=== PATIENT | female | born 1960 | race Caucasian/White ===

== ENCOUNTER → 2020-05-02 08:03 | Outpatient (CLI) | payer MEDICARE, OTHER | END | disposition home or self-care (01) | LOC: D.RAD 08:03 | PROVIDERS: ATTEND Family Medicine | DX: R13.19 Other dysphagia (principal) ==

== ENCOUNTER → 2020-10-30 09:09 | Outpatient (CLI) | payer MEDICARE, OTHER ==
--- NOTE | 2020-10-31 16:12 | EC ---
PATIENT:DINORA ELIZALDE DATE OF SERVICE: 10/30/20 SEX: F MEDICAL RECORD: [id number] DATE OF : 64 [facility] AGE OF PATIENT: 60 ADMISSION DATE: 10/30/20 REFERRING PHYSICIAN: INTERPRETING PHYSICIAN: FREDERICK MCKEON MD ECHOCARDIOGRAM REPORT ECHO CHARGES 4 ECHO COMPLETE Date: 10/30/20 CLINICAL DIAGNOSIS: HEART MURMUR ECHOCARDIOGRAPHIC MEASUREMENTS (adult normal given) AC root (d.<3.7cm) 2.3 cm LV Septum d (<1.2 cm> 1.0 cm Valve Excursion 1.3 cm LV Septum (systole) 1.3 cm Left Atria (s.<4.0cm> 3.2 cm LVPW d(<1.2cm) 1.0 cm RV (d.<2.3cm) 2.5 cm LVPW (sytole) 1.5 cm LV diastole(<5.6CM) 3.4 cm MV E-F(>70mm/sec) cm LV systole 2.3 cm LVOT Diameter 1.7 cm MV exc.(>10mm) 1.2 cm Est.ejection fraction (50-75%) % DOPPLER: LVIT cm/sec A 86.0 cm/sec E 64.0 cm/sec LA cm/sec RVSP 27 mmHg LVOT 105 cm/sec AOP1/2T m/s Asc. Ao 140 cm/sec RVOT cm/sec RA cm/sec PA cm/sec AV Gradient Peak 7.82 mmHg AV Mean 3.76 mmHg AV Area 1.5 cm MV Gradient Peak 5.31 mmHg MV Mean 2.22 mmHg MV Area cm COMMENTS: Awake Overnight Counselor: 2 ATA REYES Welt Trimming Machine Operator: 3 Dr. Dee TAPE# PACS Pericardial Effusion N DATE OF SERVICE: Adequate 2D, color flow imaging, spectral Doppler, and M-Mode. FINDINGS: No LVH. LV internal dimension is normal. Wall motion is normal. EF is greater than or equal to 55%. Aortic valve is tricuspid. No evidence of stenosis by Doppler interrogation. Left atrium is normal. Mitral valve shows no prolapse. Trivial MR. Right side is grossly normal. Trivial TR. TRANSINT:[id number] Voice Confirmation ID: [id number] DOCUMENT ID: [id number] ECHOCARDIOGRAM REPORT [id number] DINORA ELIZALDE FREDERICK MCKEON MD at 1612 CC: [id number] DICTATION DATE: 10/30/20 1433 LABORATORY TECHNOLOGY TEACHER: 10/30/20 1809 DEP CLI 10/30/20 [id number] [place] [address]
== END | disposition home or self-care (01) ==
LOC: D.HCCARDIO 09:09 → D.HCCECHO 13:30
PROVIDERS: ATTEND Internal Medicine Cardiovascular Disease
DX: I20.9 Angina pectoris, unspecified (principal); R01.1 Cardiac murmur, unspecified

== ENCOUNTER 2020-11-07 07:04 | Day surgery (SDC) | payer MEDICARE, OTHER ==
[~2020-11-07] VITALS: Ht 152.4 cm; Wt 78.7 kg
--- NOTE | ~2020-11-07 | HEMODYNAMI ---
PATIENT:DINORA ELIZALDE MEDICAL RECORD: [id number] : 64 LOCATION:D.CAT ADMISSION DATE: 11/07/20 Generatedon:19:20 Patient name: DINORA ELIZALDE Patient #: [id number] SSN: [id number] : 1960 Date of study: 11/07/2020 Page: Of Hemodynamic Procedure Report Patient Data Patient Demographics Procedure consent was obtained First Name: DINORA Gender: Female Last Name: FIDE : 1960 Middle Initial: D Age: 60 year(s) Patient #: [id number] Race: SSN: [id number] Additional ID: [id number] Contact details Address: [address] [place] [address] State: [place] City: [place] Zip code: [address] Past Medical History Performed procedures and imaging results Date Procedure Procedure Results Comments 10/30/2020 Stress testing Positive->Intermediate with SPECT MPI risk Allergies Allergen Reaction Date Comments Reported Other allergy 11/07/2020 FLEXERIL, HYDROCODONE, LAMICTAL Admission Admission Data Admission Date: 11/07/2020 Admission Time: 7:04 Arrival Date: 11/07/2020 Arrival Time: 0:00 Admit Source: Other Insurance Payor: Medicare HIC #: [id number] Height (in.): 63 BSA: 1.83 (m2) Height (cm.): 160.02 BMI: 31 (kg/m2) Weight (lbs.): 175 Weight (kg.): 79.38 Lab Results Lab Result Date: 11/07/2020 Lab Result Time: 0:00 Biochemistry Name Units Result Min Max BUN mg/dl 21 --(----)-* 7 18 Creatinine mg/dl 1.1 --(--*-)-- 0.6 1.3 eGFR ml/min 54 *-(----)-- 90 120 NONAFRICAN CBC Name Units Result Min Max Hematocrit % 36.6 *-(----)-- 42 54 Hemoglobin g/dl 11.9 *-(----)-- 13.5 17.5 Procedure Procedure Types Cath Procedure Diagnostic Procedure [facility] w/Coronaries Sedation Charges Moderate Sedation 25-39 minutes Procedure Description Procedure Date Procedure Date: 11/07/2020 Procedure Start Time: 9:07 Procedure End Time: 9:18 Procedure Staff Name Function Shahriar Guevara MD Performing Physician Dylon Hoffmann RN Nurse Noni Ramey RT Scrub Carlota Pathak RT Monitor Procedure Data Cath Procedure Fluoroscopy Diagnostic fluoroscopy Total fluoroscopy Time: 1 time: 1 min min Diagnostic fluoroscopy Total fluoroscopy dose: 209 dose: 209 mGy mGy Contrast Material Contrast Material Type Amount (ml) Isovue 300 54 Entry Location Entry Primary Successful Side Size Upsize Upsize Entry Closure Succes sful Closure Location (Fr) 1 (Fr) 2 (Fr) Remarks Device Remarks Femoral Right 5 Fr Exoseal artery Estimated blood loss: 5 ml Diagnostic catheters Device Type Used For End Catheter Placement MULTIPACK JL 4.0 5Fr Left Coronary catheter Angiography MULTIPACK 3DRC 5Fr Right Coronary catheter Angiography MULTIPACK Pigtail 5 Fr LV Angiography catheter Procedure Complications No complications Procedure Medications Medication Administration Route Dosage 0.9% NaCl I.V. 100 ml/hr Oxygen etCO2 Nasal cannula 2 l/min Heparin Flush Bag added to field 2 bags (1000units/500ml NS) Lidocaine 2% added to field 20 Versed I.V. 1 mg Fentanyl I.V. 50 mcg Versed I.V. 1 mg Fentanyl I.V. 50 mcg Hemodynamics Rest BSA: 1.83 (m2) HGB: 11.9 (g/dl) O2 Consumption: Estimated: 168.11 (ml/min) O2 Co nsumption indexed: Estimated:91.86 (ml/min/m) Heart Rate: 61 (bpm) Pressure Samples Time Site Value (mmHg) Purpose Heart Use Rate(bpm) 9:14 LV 110/13,18 Snapshot 68 9:15 AO 107/61(80) Pullback 68 9:15 LV 93/9,8 Pullback 68 Gradients Valve Time Site 1 Site 2 Mean SEP/DFP Peak To Heart Use (mmHg) (sec/min) Peak Rate (mmHg) (bpm) Aortic 9:15 LV AO 0 11 0 68 93/9,8 107/61(80) Calculations Valve P-P Mean Valve Index Valve Source Name Gradient Area Flow (cm2) Aortic 0 0 0 0 Snapshots Pre Cath Intra NCS Post Cath Vital Signs Time Heart Resp SPO2 etCO2 NIBP (mmHg) Rhythm Pain Sedation Rate (ipm) (%) (mmHg) Status Level (bpm) 8:46:46 60 12 100 33.6 134/81(115) NSR 0 (11) 10(A) , No pain 8:50:56 64 10 100 28.3 149/83(119) NSR 0 (11) 10(A) , No pain 8:55:10 67 18 96 15.6 135/77(101) NSR 0 (11) 10(A) , No pain 8:59:24 66 19 97 33.6 129/77(97) NSR 0 (11) 10(A) , No pain 9:03:38 66 14 97 8.9 118/66(90) NSR 0 (11) 10(A) , No pain 9:07:52 63 12 97 20.1 114/56(79) NSR 0 (11) 9(A) , No pain 9:12:04 64 18 96 23.1 115/56(92) NSR 0 (11) 9(A) , No pain 9:16:59 67 20 97 34.3 120/69(105) NSR 0 (11) 10(A) , No pain Medications Time Medication Route Dose Verified Delivered Reason Notes Effe ctiveness by by 8:49:10 0.9% NaCl I.V. 100 Dylon Dylon Per ml/hr Shun Hoffmann physician RN RN 8:49:20 Oxygen etCO2 2 Dylon Dylon for low 02 Nasal l/min Lorigan Lorigan sats cannula RN RN 8:49:31 Heparin Flush added 2 Dylon Dylon used for Bag to bags Lorigan Lorigan procedure (1000units/500ml field RN RN NS) 8:49:42 Lidocaine 2% added 20ml Dylon Dylon for local to vial Lorigan Lorigan anesthetic field RN RN 8:49:55 Versed I.V. 1 mg Dylon Dylon for Lorigan Lorigan sedation RN RN 8:50:03 Fentanyl I.V. 50 Dylon Dylon for mcg Lorigan Lorigan sedation RN RN 9:00:55 Versed I.V. 1 mg Dylon Dylon for Lorigan Lorigan sedation RN RN 9:01:00 Fentanyl I.V. 50 Dylon [facility]andra[facility] [place]un Hoffmann sedation RN group home manager Log Time Note 8:12:16 Informed consent obtained and on chart 8:13:30 Arrival Date: 11/07/2020 12:00:00 AM 8:13:31 Admit Source: Other 8:13:35 Insurance Payor : Medicare 8:13:58 Patient Height : 63 inches 8:14:00 Patient Weight : 175 lbs 8:15:33 Patient allergic to Other allergyFLEXERIL, HYDROCODONE, LAMICTAL 8:16:22 ACC Patient presents with Stable Angina CCS Anginal Class 2--Slight limitation of ordinary activity. 8:16:25 Procedure Status Elective Heart Cath (OP). 8:16:26 Time tracking: Regular hours (M-F 7:00 - 5:00) 8:16:31 Plan of Care:Hemodynamics will remain stable., Cardiac rhythm will remain stable., Comfort level will be maintained., Respiratory function will remain adequate., Patient/ family verbilizes understanding of procedure., Procedure tolerated without complication., Recovers from procedure without complications.. 8:16:39 H&P Date Dictated: 10/22/2020 Within 30 days and on chart.. 8:16:39 Pre-procedure instructions explained to patient. 8:16:40 Pre-op teaching completed and patient verbalized understanding. 8:16:43 Family in waiting room. 8:16:44 Patient NPO since Midnight. 8:17:12 Stress Test: yes; abnormal ANTERIOR,SEPTAL, APICAL 8:17:22 Alarms reviewed by R. N. 8:17:23 Sharps counted by scrub and verified by R.N. 8:35:47 Dylon Hoffmann RN sent for patient. Start room use. 8:36:02 Lab results completed and on chart. 8:36:57 Lab Result : BUN 21 mg/dl 8:36:57 Lab Result : Creatinine 1.1 mg/dl 8:36:57 Lab Result : eGFR NONAFRICAN 54 ml/min 8:36:57 Lab Result : Hemoglobin 11.9 g/dl 8:36:57 Lab Result : Hematocrit 36.6 % 8:37:49 Risk of Mortality: 0.9 8:37:52 Risk of blood transfusion: 1.2 8:37:55 Risk of GREGORY: 1.5 8:38:15 Patient received from Pre/Post Procedure Room to CCL 2 Alert and oriented. Tansferred to table in Supine position. 8:38:18 Warm blankets applied, and leonides hugger turned on for patient comfort. 8:38:18 Correct patient and procedure confirmed by team. 8:38:18 ECG and BP/O2 sat monitors applied to patient. 8:38:23 Is the patient allergic to Iodine/contrast media? No. 8:38:25 Was the patient premedicated? Yes 8:38:29 Patient pain scale 0/10 ?. 8:38:35 IV patent on arrival in left antecubital with 0.9% NaCl at [facility]. 8:45:49 Vital chart was started 8:45:50 Baseline sample Acquired. 8:46:05 Rhythm: sinus rhythm 8:46:06 Full Disclosure recording started 8:46:12 Is patient on blood thinner?No 8:46:16 Patient diabetic? No. 8:46:18 Previous problem with sedation/anesthesia? No ? 8:46:20 Snore? Yes 8:46:21 Sleep apnea? No 8:46:22 Deviated septum? No 8:46:23 Opens mouth fully? Yes 8:46:23 Sticks out tongue? Yes 8:46:25 Airway obstruction? No ? 8:46:28 Dentures? No ? 8:46:33 Pre procedure: right dorsailis pedis pulse 2+ Normal; easily identifiable; not easily obliterated 8:46:35 Pre procedure: left dorsailis pedis pulse 2+ Normal; easily identifiable; not easily obliterated 8:46:40 Right groin area was prepped with chlora-prep and draped in sterile fashion 8:47:20 Physician arrived 8:47:21 --------ALL STOP TIME OUT------ 8:47:21 Final Timeout: patient, procedure, and site verified with staff and physician. All members of the team are in agreement. 8:47:23 Right groin site verified by team. 8:47:26 Fire Safety Assessment: A--An alcohol-based skin anteseptic being used preoperatively., C--Open oxygen or nitrous oxide is being used., D--An ESU, laser, or fiber-optic light is being used. 8:47:29 Physical assessment completed. ASA score P 2 - A patient with mild systemic disease as per Shahriar Guevara MD. 8:47:34 3a) 45-59 Moderately reduced kidney function. 8:48:05 Maximum allowable contrast dose (3.7 X eGFR X 0.75)149 ml. 8:48:09 Sedation plan: IV Moderate Sedation Medication:Versed, Fentanyl 8:49:10 0.9% NaCl 100 ml/hr I.V. was administered by Dylno Hoffmann RN; Per physician; Verbal order read back and verified. 8:49:20 Oxygen 2 l/min etCO2 Nasal cannula was administered by Dylon Hoffmann RN; for low 02 sats; Verbal order read back and verified. 8:49:31 Heparin Flush Bag (1000units/500ml NS) 2 bags added to field was administered by Dylon Hoffmann RN; used for procedure; Verbal order read back and verified. 8:49:36 Use device set Femoral Dx 8:49:38 ACIST Syringe (52654) opened to sterile field. 8:49:38 Bag Decanter (2002S) opened to sterile field. 8:49:39 Medline Cath Pack ([id number]) opened to sterile field. 8:49:40 ACIST Hand Control (69359) opened to sterile field. 8:49:40 ACIST Manifold (87416) opened to sterile field. 8:49:41 DIAGNOSTIC Multipack 5Fr catheter set ([id number]) opened to sterile field. 8:49:41 Tegaderm 4 x 4 (1626W) opened to sterile field. 8:49:42 Lidocaine 2% 20ml vial added to field was administered by Dylon Hoffmann RN; for local anesthetic; Verbal order read back and verified. 8:49:43 SHEATH 5FR Frederick ([id number]) opened to sterile field. 8:49:43 EMERALD Guide Wire (805-366) opened to sterile field. 8:49:55 Versed 1 mg I.V. was administered by Dylon Hoffmann RN; for sedation; Verbal order read back and verified. 8:50:03 Fentanyl 50 mcg I.V. was administered by Dylon Hoffmann RN; for sedation; Verbal order read back and verified. 9:00:03 Procedure started. 9:00:55 Versed 1 mg I.V. was administered by Dylon Hoffmann RN; for sedation; Verbal order read back and verified. 9:01:00 Fentanyl 50 mcg I.V. was administered by Dylon Hoffmann RN; for sedation; Verbal order read back and verified. 9:04:25 Zero performed for pressure channel P1 9:07:03 Local anesthetic to right femoral artery with Lidocaine 2% by Shahriar Guevara MD.INITIAL ACCESS ONLY 9:09:56 A 5 Fr sheath was inserted into the Right Femoral artery 9:10:02 A MULTIPACK JL 4.0 5Fr catheter was advanced over the wire and used for Left Coronary Angiography. 9:11:02 LCA angiography performed. 9:11:05 Injector settings: Ml/sec: 3, Volume: 6, 9:11:52 Catheter removed. 9:11:57 A MULTIPACK 3DRC 5Fr catheter was advanced over the wire and used for Right Coronary Angiography. 9:12:41 RCA angiography performed. 9:12:45 Injector settings: Ml/sec: 3, Volume: 6, 9:13:11 Catheter removed. 9:13:16 A MULTIPACK Pigtail 5 Fr catheter was advanced over the wire and used for LV Angiography. 9:14:40 LV hemodynamics recorded. 9:14:41 LV gram done using MAR 9:14:43 Injector settings: Ml/sec: 5, Volume: 15, 9:14:54 EF : 60 % 9:14:55 Catheter removed. 9:15:03 EXOSEAL 5Fr (EX500) opened to sterile field. 9:15:13 Sheath removed intact; hemostasis achieved with Exoseal to the Right Femoral artery. 9:15:37 Procedure ended.(Physican Out) 9:15:50 Fluoroscopy time 01.00 minutes. 9:15:54 Fluoroscopy dose: 209 mGy 9:15:54 Flurop Dose total: 209 9:16:09 Dose Area Product 16489 mGy/cm. 9:17:40 Contrast amount:Isovue 300 54ml. 9:17:43 Maximum allowable dose exceeded? No. 9:17:44 Sharps counted by scrub and verified by R.N. 9:17:45 Insertion/operative site no bleeding no hematoma. 9:17:48 Post-op/insertion site Right Femoral artery dressed using a 4 x 4 and Tegaderm. 9:17:51 Post right femoral artery:stable 9:17:53 Post Procedure Pulses reassessed and unchanged 9:17:55 Post procedure rhythm: unchanged. 9:17:58 Estimated blood loss: 5 ml 9:18:00 Post procedure instruction explained to patient.Patient verbalizes understanding. 9:18:00 Patient needs reinforcement of post procedure teaching. 9:18:35 Procedure type changed to Cath procedure, Diagnostic procedure, LHC, [facility] w/Coronaries, Sedation Charges, Moderate Sedation 25-39 minutes 9:18:36 Procedure and supply charges have been captured, reviewed, submitted and are correct. 9:18:41 Procedure Complication : No complications 9:18:44 Vital chart was stopped 9:18:46 [facility] Findings: mild to moderate CAD (<70%) 9:18:47 Operative report dictated upon procedure completion. 9:18:48 See physician's report for complete and final results. 9:18:50 Report given to Pre/Post Procedure Room. 9:18:53 Patient transfered to Pre/Post Procedure Room with Stretcher. 9:18:55 Procedure ended. 9:18:55 Full Disclosure recording stopped 9:19:01 End room use (Document Last) 9:20:10 End room use (Document Last) 9:20:33 End room use (Document Last) Device Usage Item Name Manufacture Quantity Catalog Hospital Part Current Minimal L ot# / Number Charge Number Stock Stock Serial# Code ACIST Acist 1 86866 690671 347338 256530 20 Syringe Medical (23721) Systems Inc Bag Microtek 1 725679 88344 498937 5 Decanter Medical Inc. () Medline Medline 1 [id number] 212220 75960 650073 5 Cath Pack ([id number]) ACIST Hand Acist 1 35480 221535 037172 483730 5 Control Medical (27778) Systems Inc ACIST Acist 1 76043 345279 514817 802171 5 Manifold Medical (96665) Systems Inc DIAGNOSTIC Cardinal 1 [id number] 056502 78532 469224 30 [facility] 5Fr catheter set (XE3528) Tegaderm 4 3M 1 1626W 501247 741252 257980 5 x 4 (1626W) SHEATH 5FR Terumo 1 DUV158 969559 316495 345672 5 Frederick (AOB719) EMERALD Cardinal 1 516-155 249748 799988 196662 5 Guide Wire Health (248-421) MULTIPACK Cardinal 1 916137 5 JL 4.0 5Fr Health catheter MULTIPACK Cardinal 1 576709 5 3DRC 5Fr Health catheter MULTIPACK Cardinal 1 547005 5 Pigtail 5 Health Fr catheter EXOSEAL 5Fr Cardinal 1 EX500 092099 033436 994639 10 (EX500) Health Signature Audit [place] Stage Time Signature Unsigned Intra-Procedure 11/07/2020 Carlota Pathak 9:20:10 AM RT(R) Intra-Procedure 11/07/2020 Dylon 9:20:33 AM Shun RN Intra-Procedure 11/07/2020 Shahriar Key 9:20:53 AM James HALE Signatures Performing Physician : Signature : Shahriar Guevara MD Date : Time : Nurse : Dylon Hoffmann Signature : RN Date : Time : Monitor : Carlota Pathak RT Signature : Date : Time : [place] [id number] [place] [address]
--- NOTE | ~2020-11-07 | OP ---
PATIENT NAME: DINORA ELIZALDE MEDICAL RECORD: [id number] :64 LOCATION:D.CAT ADMISSION DATE: SURGEON: FREDERICK MCKEON MD DATE OF OPERATION: 11/07/2020 PROCEDURES: Left heart catheterization, selective coronary angiography, right femoral artery approach. CATHETERS: 5-Montserratian sheath, 5/4 left and right Ashish, 5/4 pig. The procedure was well tolerated. The patient was returned to shin, sheath removed. ExoSeal device placed. FINDINGS: Left ventriculography in 30-degree MAR view. Normal wall motion and normal systolic function. CORONARY ANATOMY: LEFT MAIN: Left main is free of disease. LAD: Free of disease in the diagonal system. CIRCUMFLEX: Free of disease in the marginal system. RIGHT CORONARY ARTERY: Dominant artery, gives rise to PDA, free of disease. IMPRESSION: Normal systolic function, normal coronary anatomy. TRANSINT:[id number] Voice Confirmation ID: [id number] DOCUMENT ID: [id number] FREDERICK MCKEON MD CC: [id number] DICTATION DATE: 11/07/20921 DISASTER RECOVERY COORDINATOR: 11/07/20 1108 [facility] [address] [place] [address]
[2020-11-07] MEDS ORDERED: OMEPRAZOLE40 MG PO (07:55)
[2020-11-07] MEDS ORDERED: ERGOCALCIF50000 UNIT PO (07:56)
[2020-11-07] MEDS ORDERED: BUPROPION XL300 MG PO (07:56)
[2020-11-07] MEDS ORDERED: PROPRANOLOL HCL10 MG PO (07:57)
[2020-11-07] MEDS ORDERED: LYRICA75 MG PO (07:57)
[2020-11-07] MEDS ORDERED: OXYBUTYNIN CHLOR5 MG PO (07:57)
[2020-11-07] MEDS ORDERED: LIPITOR20 MG PO (07:58)
[2020-11-07] MEDS ORDERED: ULTRAM50 MG PO (07:59)
[2020-11-07] MEDS ORDERED: TOPAMAX100 MG PO (07:59)
[2020-11-07 08:05] VITALS: BP 140/80; Ht 152.4 cm; Wt 78.7 kg
[2020-11-07 08:16] LABS: BASOPHILS 0.7 % (0-2); EOSINOPHILS 1.3 % (0-7); HEMATOCRIT 36.6 % (36.0-48.0); HEMOGLOBIN 11.9 g/dL (12-16); LYMPHOCYTE ABS# 2.16 10x3/uL (1.18-3.74); LYMPHOCYTES 38.8 % (15-50); MCH 29.7 pg (26.0-34.0); MCHC 32.5 g/dL (31.0-37.0); MCV 91.3 fL (80.0-100.0); MEAN PLATELET VOLUME 10.7 fL (7.4-10.4); MONOCYTES 8.3 % (2-11); NEUTROPHIL ABS# 2.84 10x3/uL (1.56-6.13); NEUTROPHILS 50.9 % (40-80); PLATELET COUNT 252 10x3/uL (130-400); RBC 4.01 10x6/uL (4.00-5.40); RDW 13.7 % (11.5-14.5); WBC 5.6 10x3/uL (4.8-10.8)
[2020-11-07 08:30] LABS: ANION GAP 14.1 mmol/L (8-16); CALCIUM 8.6 mg/dL (8.5-10.1); CARBON DIOXIDE 22.7 mmol/L (21.0-32.0); CHOL - HDL RATIO 2.6 ratio (2.3-4.1); CREATININE - SERUM 1.1 mg/dL (0.6-1.3); LDL-HDL RATIO 1.4 ratio (1.5-3.5); POTASSIUM - SERUM 3.8 mmol/L (3.5-5.1)
--- NOTE | 2020-11-07 09:31 | NUR ---
PT RECEIVED BACK TO ROOM 9 VIA STRETCHER FROM GAS ENGINE REPAIRER FOR RECOVERY. PT DROWSY BUT AWAKE. DENIES PAIN OR DISCOMFORT AT THIS TIME. 5FR EXOCELE TO R GROIN, SITE SOFT AND DRESSING CDI, NO S/S HEMATOMA OR BLEEDING NOTED. IV PATENT INFUSING VIA ORDERS TO L ARM. PT PLACED ON CARDIAC MONITORS, SEE V/S SHEET. CALL LIGHT IN REACH, AT BS. DR MCKEON WAS IN ROOM PRIOR TO PT ARRIVAL AND SPOKE WITH REGARDING PROCEDURE RESULTS AND PLAN OF CARE.
--- NOTE | 2020-11-07 10:00 | NUR ---
PT RESTING COMFORTABLY, R GROIN SOFT, DRESSING CDI NO S/S HEMATOMA OR BLEEDING NOTED. CALL LIGHT IN REACH, AT BEDSIDE. VSS AT PRESENT.
--- NOTE | 2020-11-07 10:45 | NUR ---
PT RESTING COMFORTABLY, TOLERATING PO FLUIDS AND SANDWICH. R GROIN SOFT, DRESSING CDI NO S/S HEMATOMA OR BLEEDING NOTED. CALL LIGHT IN REACH. VSS AT PRESENT.
--- NOTE | 2020-11-07 11:05 | NUR ---
DISCHARGE INSTRUCTIONS REVIEWED W PT AND , THEY VERBALIZED UNDERSTANDING. IV REMOVED W CATH INTACT, MONITORS REMOVED. R GROIN REMAINS SOFT, NO S/S HEMATOMA OR BLEEDING NOTED. 1115 PT AMBULATED TO , THEN DISCHARGED AMBULATORY TO WAITING IN PRIVATE VEHICLE. PT HAD ALL BELONGINGS AND DISCHARGE INSTRUCTIONS
== END 2020-11-07 11:15 | disposition home or self-care (01) ==
LOC: D.CATH 07:04
PROVIDERS: ATTEND Internal Medicine Interventional Cardiology
DX: R07.9 Chest pain, unspecified (principal); I10 Essential (primary) hypertension; I20.9 Angina pectoris, unspecified; E78.5 Hyperlipidemia, unspecified; R01.1 Cardiac murmur, unspecified; I49.9 Cardiac arrhythmia, unspecified

== ENCOUNTER → 2021-02-06 10:32 | Outpatient (CLI) | payer MEDICARE, OTHER ==
[2020-11-07 08:05] VITALS: BMI 33.8
[~2021-02-06 10:32] MED LIST: BUPROPION XL300 MG PO; ERGOCALCIF50000 UNIT PO; LIPITOR20 MG PO; LYRICA75 MG PO; OMEPRAZOLE40 MG PO; OXYBUTYNIN CHLOR5 MG PO; PROPRANOLOL HCL10 MG PO; TOPAMAX100 MG PO; ULTRAM50 MG PO
== END | disposition home or self-care (01) ==
LOC: D.RAD 10:32
PROVIDERS: ATTEND Pain Medicine Interventional Pain Medicine
DX: M54.5 Low back pain (principal)